=== PATIENT | female | born 1960 | race Caucasian/White ===

== ENCOUNTER 2018-09-28 10:06 | Emergency (ER) | payer BC ==
[~2018-09-28] VITALS: Wt 76.0 kg
--- NOTE | 2018-09-28 12:00 | ERD ---
ER Documentation Chief Complaint Chief Complaint COUGH SINCE THURSDAY HPI 58-year-old female presenting presenting with cough and runny nose for 4 days. Patient denies fever, body chills, body aches or hot flashes. Patient was unable to get into primary care provider so presented to the ER. Patient has history of hypertension and denies any surgeries. ROS All systems reviewed and are negative except as per history of present illness. Medications Home Meds Active Scripts Albuterol Sulfate* (Proair HFA*) 8.5 Gm Hfa.aer.ad, 2 PUFF INH Q4, #1 INHALER Prov:MORGAN HASSAN PA-C 09/28/18 Methylprednisolone* (Medrol* DOSE PACK) 4 Mg/Dose-Pack Tab.ds.pk, 4 MG PO . DIRECTED for 7 Days, PACKET Prov:MORGAN HASSAN PA-C 09/28/18 Dextromethorphan Hb-Promethazine Hcl* (Promethazine DM* Syrup) 473 Ml Syrup, 5 ML PO Q6 PRN for COUGH for 7 Days, ML Prov:MORGAN HASSAN PA-C 09/28/18 Azithromycin* (Zithromax*) 250 Mg Tablet, 250 MG PO .ZPACK DIRECTED, #6 TAB TAKE 500 MG (2 TABS) THE FIRST DAY THEN 250 MG (1 TAB) DAYS 2-5 Prov:MORGAN HASSAN PA-C 09/28/18 Allergies Allergies: Coded Allergies: No Known Allergy (Unverified , 09/28/18) PMhx/Soc Medical and Surgical Hx: pt denies Medical Hx, pt denies Surgical Hx History of Surgery: No Anesthesia Reaction: No Hx Neurological Disorder: No Hx Respiratory Disorders: No Hx Cardiac Disorders: No Hx Psychiatric Problems: No Hx Miscellaneous Medical Probl: No Hx Alcohol Use: No Hx Substance Use: No Hx Tobacco Use: No Smoking Status: Never smoker FmHx Family History: No diabetes, No coronary disease, No other Physical Exam Vitals Vital Signs Date Temp Pulse Resp B/P (MAP) Pulse Ox O2 O2 Flow FiO2 Time Delivery Rate 09/28/18 98.0 65 18 138/62 97 Room Air 12:43 (87) 09/28/18 97.7 70 18 145/65 97 10:10 (91) Physical Exam GENERAL: The patient is well-appearing, well-nourished, in no acute distress HEENT: Atraumatic. Conjunctivae are pink. Pupils equal, round, and reactive to light. There is no scleral icterus. Tympanic membranes clear bilaterally. Oropharynx clear. No nystagmus or photophobia. CHEST: Patient has non productive cough with mild wheezing. HEART: Regular rate and rhythm. No murmurs, clicks, rubs or gallops. ABDOMEN:Soft, nontender and nondistended. Good bowel sounds. No rebound or guarding. No gross peritonitis. No gross organomegaly or masses. No Durham sign or McBurney point tenderness. Procedures/MDM ED course: The patient was stable throughout the ED course. The patient and/or family informed of laboratory and diagnostic imaging results throughout the ED course . Medications given in ER: None Patient tolerated medication well with no adverse reactions. Patient reported improvement in pain. Medical decision makin-year-old female presenting to ER for cough x4 days. Patient's vitals were normal limits O2 sats were 98% on room air. Patient is afebrile and appears in no respiratory distress. Physical exam was unremarkable patient had mild wheeze on auscultation. Patient was persistent on wanting an antibiotic and was advised that her illness was most likely due to to a virus and antibiotic treatment is not warranted at this time. Patient states persistent on wanting an antibiotic. Advised patient that I will send him with a prescription for an antibiotic but to use the albuterol Medrol Dosepak promethazine for at least 3 days before filling the antibiotic. The patient agreed to this treatment plan. I have low suspicion for pneumonia meningitis si nusitis otitis externa acute otitis media strep pharyngitis epiglottitis or peritonsillar abscess. Patient was advised to follow-up with primary care provider within 1 to 2 days regarding this visit. Patient was advised if symptoms worsen to return to the ER. The patient had no further questions on discharge and was also educated on side effects of medications. Prescription for home: Albuterol sulfate Medrol Dosepak Promethazine DM Azithromycin Discharge: At this time, patient is stable for discharge and outpatient management. I have instructed the patient to follow-up with his\her primary care physician in 1 to 2 days. I have discussed with the patient the possibility of needing to see a specialist for further work-up and imaging studies if symptoms persist. I have instructed the patient to promptly return to the ER for any new or worsening symptoms including increased pain, fever, nausea, vomiting, weakness or LOC. The patient and\or family expressed understanding of and agreement with this plan. All questions were answered. Home care instructions were provided. Departure Diagnosis: Primary Impression: Acute bronchitis Bronchitis organism: unspecified organism Qualified Codes: J20.9 - Acute bronchitis, unspecified Condition: Stable Patient Instructions: Acute Bronchitis Comments Patient was persistent on receiving antibiotic when advised that her illness was most likely due to virus. Patient was given prescription for azithromycin with strict instructions to only fill if symptoms do not improve after 3 days of treatment with albuterol Medrol Dosepak and promethazine. MORGAN HASSAN PA-C September 28, 2018 12:00
[2018-09-28] MEDS ORDERED: MED4DP PO (12:04)
[2018-09-28] MEDS ORDERED: D-ME473S2 PO (12:04)
[2018-09-28] MEDS ORDERED: AZIT250T PO (12:04)
[2018-09-28] MEDS ORDERED: ALBU8.5H8 INH (12:06)
[2018-09-28 12:43] VITALS: BP 138/62; PULSE 65; RESP 18
== END 2018-09-28 12:45 | disposition home or self-care (01) ==
LOC: FTE 10:06
DX: J20.9 Acute bronchitis, unspecified (principal); I10 Essential (primary) hypertension
CPT/HCPCS: 99283